=== PATIENT | male | born 1970 | race Caucasian/White ===

== ENCOUNTER 2018-04-19 16:44 | Emergency (ER) | payer MEDICAID ==
[~2018-04-19] VITALS: Ht 177.8 cm; Wt 74.1 kg
[~2018-04-19 16:44] MED LIST: HYDR12.530 PO; LISI-661 PO
[2018-04-19 17:04] VITALS: BP 108/69
[2018-04-19] MEDS ORDERED: PERTUSS(ACELL),DIPH,TET VAC/PF 0.5 ML VIAL IM ONE (17:30)
[2018-04-19] MEDS ORDERED: IBUPROFEN 800 MG TABLET PO ONE (17:30)
[2018-04-19] MEDS ORDERED: BACITRACIN 0.9 GM PACKET OINTMENT TP ONE (17:30)
== END 2018-04-19 18:20 | disposition home or self-care (01) ==
LOC: EMS 16:44
DX: S01.81XA Laceration without foreign body of other part of head, initial encounter (principal); I10 Essential (primary) hypertension; F12.10 Cannabis abuse, uncomplicated; F15.10 Other stimulant abuse, uncomplicated; F17.290 Nicotine dependence, other tobacco product, uncomplicated; Z79.899 Other long term (current) drug therapy; Y04.0XXA Assault by unarmed brawl or fight, initial encounter; Y93.89 Activity, other specified; Y92.89 Other specified places as the place of occurrence of the external cause; Y99.8 Other external cause status
CPT/HCPCS: 90471; 90715; 99283

== ENCOUNTER 2018-05-28 06:22 | Emergency (ER) | payer MEDICAID ==
[~2018-05-28] VITALS: Ht 177.8 cm; Wt 75.9 kg
[2018-05-28 06:25] VITALS: BP 155/107
[2018-05-28] MEDS ORDERED: IBUPROFEN 600 MG TABLET PO ONE (07:00)
== END 2018-05-28 07:42 | disposition home or self-care (01) ==
LOC: EMS 06:23
DX: S63.592A Other specified sprain of left wrist, initial encounter (principal); I10 Essential (primary) hypertension; F12.10 Cannabis abuse, uncomplicated; F17.220 Nicotine dependence, chewing tobacco, uncomplicated; Z79.899 Other long term (current) drug therapy; W18.39XA Other fall on same level, initial encounter; Y93.89 Activity, other specified; Y92.89 Other specified places as the place of occurrence of the external cause; Y99.8 Other external cause status
CPT/HCPCS: 99284